=== PATIENT | male | born 1960 | race Caucasian/White ===

== ENCOUNTER 2021-03-31 10:39 | Outpatient (REF) | payer OTHER, SELFPAY ==
[2021-03-31 14:24] LABS: Alanine Aminotransferase 51 U/L (0-40); Albumin Level 4.4 g/dL (3.5-5.0); Alkaline Phosphatase 64 U/L (39-117); Anion Gap 13 (12-20); Aspartate Amino Transferase 35 U/L (5-37); Bilirubin Total 0.7 mg/dL (0.0-1.0); Blood Urea Nitrogen 17 mg/dL (9-16); Calcium 9.3 mg/dL (8.4-10.2); Carbon Dioxide 27 mmol/L (22-29); Chloride 105 mmol/L (96-108); Cholesterol 196 mg/dL; Estimated Glomerular Filt Rate > 60; Glucose Fasting 99 mg/dL (60-99); HDL Cholesterol 54 mg/dL; LDL Cholesterol Calculated 95 mg/dl; Potassium 4.4 mmol/L (3.3-5.1); Sodium 141 mmol/L (135-145); Total Protein 7.4 g/dL (6.5-8.0); Triglycerides 236 mg/dL
[2021-03-31 14:30] LABS: Creatinine Urine 202.49 mg/dL; Microalbum/Creatinine Ratio Ur 19.2 ug/mg cr
[2021-03-31 14:45] LABS: Prostate Specific Antigen Scr 0.43 ng/mL (<0.05-4.0); TSH reflex Free T4 1.27 uIU/mL (0.32-4.0)
== END 2021-03-31 10:40 | disposition home or self-care (01) ==
LOC: HO.WFDLDS 10:39
PROVIDERS: Visit Provider Family Medicine
DX: Z00.00 Encounter for general adult medical examination without abnormal findings (principal); Z12.5 Encounter for screening for malignant neoplasm of prostate; I10 Essential (primary) hypertension
CPT/HCPCS: 36415; 80053; 80061; 82043; 84153; 84443

== ENCOUNTER → 2021-05-27 10:17 | Outpatient (BNVA) | payer OTHER, SELFPAY | PROVIDERS: PCP Family Medicine; Referring Provider Family Medicine; Visit Provider Internal Medicine Cardiovascular Disease | DX: I71.2 Thoracic aortic aneurysm, without rupture (principal); I10 Essential (primary) hypertension; I44.1 Atrioventricular block, second degree | CPT/HCPCS: 93005; 99202 ==

== ENCOUNTER → 2021-06-03 10:08 | Outpatient (REF) | payer OTHER, SELFPAY ==
--- NOTE | 2021-06-03 10:13 | HM_ITS ---
Conclusion: 1. Patient was monitored for total period of 3 days and 2 hours 2. Baseline rhythm is normal sinus rhythm with average heart of 61 beats per minute 3. Very frequent Mobitz type 1 second-degree AV block noted mostly in the rn gyn hours, total burden 15.35% 4. Most of the pauses there were reported are secondary to Mobitz type 1 second- degree AV block 5. Very rare ectopics noted 6. No patient reported symptoms MTDD
--- NOTE | 2021-06-03 10:13 | CA_ITS ---
Acquisition Time: 2021-06-03 10:17:52 Total Exercise Time: 00:09:00 Test Indications: ABN EKG Medications: SEE CHART Protocol: THIEN Max HR: 122 BPM 76% of Pred: 159 BPM Max BP: 178/096 mmHG Max Work Load: 10.1 METS Exercise stress test with exercise 9 min of Thien protocol, achieving 76% MPHR, 10.1 METs, with request to stop due to leg fatigue and moderate sob, with no chest discomfort, with few PVCs noted in stage 3, nonconducted PACs noted in recovery, with normotensive response to exercise, with nondiagnostic EKG for ischemia due to suboptimal heart rate, with no ischemic changes noted at achieved workload. Test reviewed with Dr Land. Referred By: Jose Alberto Gray Overread By: GERI DAVIS
== END ==
LOC: HO.CARD 10:08
PROVIDERS: PCP Family Medicine; Visit Provider Internal Medicine Cardiovascular Disease
DX: I44.1 Atrioventricular block, second degree (principal)
CPT/HCPCS: 93017; 93242

== ENCOUNTER → 2021-06-30 11:25 | Outpatient (BNVA) | payer OTHER, SELFPAY | PROVIDERS: PCP Family Medicine; Referring Provider Family Medicine; Visit Provider Internal Medicine Cardiovascular Disease | DX: I25.10 Atherosclerotic heart disease of native coronary artery without angina pectoris (principal) | CPT/HCPCS: 99212 ==

== ENCOUNTER → 2021-07-02 15:02 | Outpatient (REF) | payer OTHER, SELFPAY ==
--- NOTE | 2021-07-02 15:07 | CA_ITS ---
Transthoracic Echocardiogram Patient (Last, First, Middle): Hugo Valdes, Gender: Male Date of : 1960 Age: 60 Procedure Date: 07/02/2021 Procedure Type: Transthoracic Echocardiogram Location: OP Height: 177.8 cm Weight: 95.26 kg BSA: 2.13 m2 Heart Rate: bpm BP: 118 / 81 mmHg Feather Maker: YAJAIRA Referring MD: Jose Alberto Gray MD Cable Mock Up Assembler: Jose Alberto Gray MD Symptoms: I71.2 - Thoracic aortic aneurysm, without rupture Study Quality: Adequate ECG Rhythm: Bradycardia Conclusions: - 1. Normal LV systolic function with grade 1 diastolic dysfunction 2. Trace to mild aortic regurgitation 3. Mildly dilated ascending aorta at 3.9 cm 4. No pericardial effusion Findings Left Ventricle Normal left ventricular size, thickness, and systolic function. The visually estimated ejection fraction is between 60-65%. Spectral Doppler is indicative of an impaired relaxation filling pattern. E/E prime ratio is <8, consistent with normal filling pressures. Evidence suggests grade I (mild) diastolic dysfunction. Measured global longitudinal endocardial strain is 19.4%, within normal limits Right Ventricle Normal right ventricular cavity size and systolic function. Atria The left atrium is likely dilated. There is no evidence of interatrial shunt. The right atrium is normal in size. Aortic Valve There is mild calcification of the aortic valve. There is no aortic valve stenosis. There is mild aortic valve regurgitation. Mitral Valve There is mild anterior and posterior mitral leaflet thickening. There is trace mitral valve regurgitation. There is no mitral valve stenosis. Pulmonic Valve The pulmonic valve is likely normal. There is trace pulmonic valve regurgitation. Tricuspid Valve Normal tricuspid valve structure. There is trace tricuspid valve regurgitation. Tricuspid regurgitation envelope is inadequate for calculation of right ventricular systolic pressure. Great Vessels The pulmonary artery was not well visualized. There is mild dilatation of the ascending aorta measuring 3.90 cm. Venous The inferior vena cava is normal in size and collapses greater than 50% with inspiration. Pericardium/Pleural There is no evidence of pericardial effusion. Prior Study Comparison No prior study available for comparison. Measurements 2D Linear Measurements IVSd: 1.06 0.6-0.9/0.6-1.0 cm LVIDd: 5.36 3.9-5.3/4.2-5.9 cm LVIDd Index: 2.52 2.4-3.2/2.2-3.1 cm/m2 LVIDs: 3.15 2.0-3.6 cm LVPWd: 0.90 0.7-1.1 cm LA Diam: 4.10 2.7-3.8/3.0-4.0 cm LAIDs Index: 1.92 1.5-2.3 cm/m2 LV Mass: 275.97 67-162/88-224 g LV Mass Index: 129.56 43-95/49-115 g/m2 LVOT Diam: 2.40 3.0+(-)1.3 cm Mitral Valve MV Pk E: 0.58 MV PK A: 0.72 MV Decel Time: 337.00 E/A: 0.80 E'Lateral: 7.51 E'Medial: 5.77 E/E' Med: 10.00 E/E' Lat: 7.70 PHT: 99.00 MVA PHT: 2.22 Decel Don[place]han: 1.72 Aortic Valve AoV Pk Rodrigo: 1.74 AoV Mn Rodrigo: 1.09 AoV VTI: 0.31 AoV Pk Grad: 12.00 Aov Mn Grad: 6.00 GEORGE Cont.VTI: 3.33 LVOT LVOT Pk Rodrigo: 1.14 LVOT Mn Rodrigo: 0.75 LVOT VTI: 0.23 LVOT Pk Grad: 5.00 LVOT Mn Grad: 3.00 LVOT Diam: 2.40 LVOT Area: 4.52 Diastolic Function MV Pk E: 0.58 MV Pk A: 0.72 E/A: 0.80 E'Medial: 5.77 E/E' Med: 10.00 E' Laterial: 7.51 E/E' Lat: 7.70 Right Ventricle TAPSE (mm): 19.00 TVS' Rodrigo: 16.40 Tricuspid Valve RA Press: 3.00 Great Vessels Aorta Sinus of Valsalva: 4.16 2.0-3.[address] Ridge: 3.60 1.7-3.4 cm Ao Asc: 3.90 2.1-3.4 cm Ao Arch: 3.40 Pulmonary Veins Pulm Vein S/D 1.30 Pulmonary Valve PV Pk Rodrigo: 1.02 Peak PV Grad: 4.00 Updated in Other Vendor System with Status of Final Jose Alberto Gray MD electronically signed on 07/03/2021 3:20:14 PM with status of Final
== END ==
LOC: HO.CARD 15:02
PROVIDERS: PCP Family Medicine; Visit Provider Internal Medicine Cardiovascular Disease
DX: I71.2 Thoracic aortic aneurysm, without rupture (principal)
CPT/HCPCS: 93306

== ENCOUNTER 2021-07-03 10:34 | Outpatient (REF) | payer OTHER, SELFPAY ==
[2021-07-03 14:20] LABS: Hematocrit 42.3 % (42.0-52.0); Hemoglobin 14.8 g/dl (14.0-18.0); Mean Corpuscular Volume 94.2 fL (80.0-98.0); Mean Platelet Volume 10.6 fL (9.4-12.4); Platelet Count 235 X10*3/uL (160-400); Red Blood Count 4.49 X10*6/uL (4.60-5.80); Red Cell Distribution Width 12.3 % (11.0-16.0)
[2021-07-03 14:21] LABS: INTERNATIONAL NORM RATIO 0.9 (0.9-1.1); Prothrombin Time 10.6 SEC (9.9-13.0)
[2021-07-03 14:22] LABS: Anion Gap 12 (12-20); Blood Urea Nitrogen 18 mg/dL (9-16); Calcium 9.1 mg/dL (8.4-10.2); Carbon Dioxide 26 mmol/L (22-29); Chloride 103 mmol/L (96-108); Estimated Glomerular Filt Rate > 60; Glucose Random 110 mg/dL (60-115); Sodium 137 mmol/L (135-145)
== END 2021-07-03 10:35 | disposition home or self-care (01) ==
LOC: HO.WFDLDS 10:34
PROVIDERS: Visit Provider Internal Medicine Cardiovascular Disease
DX: I25.10 Atherosclerotic heart disease of native coronary artery without angina pectoris (principal)
CPT/HCPCS: 36415; 80048; 85027; 85610

== ENCOUNTER → 2021-07-30 14:17 | Outpatient (BNVA) | payer OTHER, SELFPAY | PROVIDERS: PCP Family Medicine; Referring Provider Family Medicine; Visit Provider Internal Medicine Cardiovascular Disease | DX: I25.10 Atherosclerotic heart disease of native coronary artery without angina pectoris (principal); I71.2 Thoracic aortic aneurysm, without rupture; I44.1 Atrioventricular block, second degree | CPT/HCPCS: 99212 ==

== ENCOUNTER 2021-09-24 09:35 | Outpatient (REF) | payer OTHER, SELFPAY ==
[2021-09-24 11:35] LABS: Alanine Aminotransferase 60 U/L (0-40); Albumin Level 4.6 g/dL (3.5-5.0); Alkaline Phosphatase 63 U/L (39-117); Aspartate Amino Transferase 36 U/L (5-37); Bilirubin Direct 0.3 mg/dL (0.0-0.5); Bilirubin Total 0.7 mg/dL (0.0-1.0); Cholesterol 153 mg/dL; HDL Cholesterol 53 mg/dL; LDL Cholesterol Calculated 71 mg/dl; Total Protein 7.6 g/dL (6.5-8.0); Triglycerides 145 mg/dL
== END 2021-09-24 09:36 | disposition home or self-care (01) ==
LOC: HO.WFDLDS 09:35
PROVIDERS: Visit Provider Internal Medicine Cardiovascular Disease
DX: I25.10 Atherosclerotic heart disease of native coronary artery without angina pectoris (principal); R74.01 Elevation of levels of liver transaminase levels
CPT/HCPCS: 36415; 80061; 80076

== ENCOUNTER 2021-11-11 09:00 | Outpatient (RCR) | payer OTHER, SELFPAY ==
--- NOTE | 2021-10-14 12:19 | MHC.PT.EP ---
[facility] [place] [facility] [place] Office [place] Office [address] [place] [address] Dr Boby Virk [address] [phone] F: [phone] F: [phone] F: [phone] F: [phone] Physical Therapy Plan of Care Date of Evaluation: Date of Surgery: NA FOR L, HAD R ACHILLES REPAIR 2000 Diagnosis: STRAIN OF L ACHILLES TENDON Assessment: Pt IS 60 YO M REFERRED TO PT FROM DR SIN WITH STAIN OF L ACHILLES TENDON. Pt REPORTS HX OF SIMILAR PAIN R ACHILLES TENDON (WHICH ENDED UP BEING PARTIALLY TORN, THEN COMPLETE RUPTURE WITH SURGERY IN 2000). PRESENTS WITH LIMITED L ANKLE ROM AND DECREASE L LE FLEXIBILITY WITH SLIGHT DECREASAE IN ANKLE STRENGTH AND PROPRIOCEPTION. Pt IS AWAITING US (Nov) FOR ACHLLES TENDON TO ASSESS IF TORN. SHOULD BENEFIT FROM PT 1X/WK UNTIL THEN FOR TRIAL OF STRETCH/STRENGTHEN, ST WORK, PROP WORK, KT TO HELP WITH PAIN Frequency and Duration: The patient will be seen 1X/WK X 6 WKS Short Term Goals: 1. HEP WITH DC EX PLAN 2. INCREASED AWARENESS ACHILLES/ANKLE CARE (INCLUDING SELF KT IF INDICATED) Progress Worker Goals: 1. DECREASED L ACHILLES TENDON PAIN AT LEAST 50% WITH ADLS 2. INCREASED ANKLE DF 5 DEGREES 3, INCREASED HS FLEX L 5 DEGREES Treatment Plan: Modalities to reduce pain, spasms and effusion. Manual therapy to restore motion and function. Therapeutic exercise to improve strength and flexibility. Neuromuscular re-education for posture and balance. Therapeutic activities to return to functional activities of daily living. Electronically signed by: JALEEL SHAW PT Please sign and return to therapist. Thank you for your referral.
--- NOTE | 2021-11-11 10:46 | MHC.PT.DC ---
[facility] [place] [facility] [place] [facility] [place] [facility] [address] Boby Virk [address] [phone] F: [phone] F: [phone] F: [phone] F: [phone] Physical Therapy Discharge Report Diagnosis: STRAIN OF L ACHILLES TENDON Date of Surgery: NA FOR L, HAD R ACHILLES REPAIR 2000 Date of Evaluation: 10/14/21 Date of Discharge: 11/11/21 Treatments to Date: 5 Cancellations to Date: No Shows to Date: Discharge Status: Achieved Goals Improved Function Independent with HEP Discharge Summary: HAS MET PT GOALS Electronically signed by: JALEEL SHAW PT Please sign and return to therapist. Thank you for your referral.
== END 2021-11-11 10:47 | disposition home or self-care (01) ==
LOC: HO.PTWFD 09:00
PROVIDERS: PCP Family Medicine; Visit Provider Family Medicine
DX: S86.012A Strain of left Achilles tendon, initial encounter (principal)
CPT/HCPCS: 97110; 97140; 97162; 97530; 97535

== ENCOUNTER 2021-11-25 10:57 | Outpatient (REF) | payer OTHER, SELFPAY ==
--- NOTE | ~2021-11-25 | US_ITS ---
EXAMINATION: US ABDOMEN LIMITED WITH LIVER ELASTOGRAPHY CLINICAL INFORMATION: Elevation of liver transaminase levels. COMPARISON: None. TECHNIQUE: Real-time imaging of the abdominal viscera. Noninvasive ultrasound liver fibrosis assessment is performed using Ramos ElastPQ point quantification shear wave elastography (2D-SWE) with a C5-2 MHz transducer. Multiple elastography samples are obtained. FINDINGS: PANCREAS: Normal. The visualized pancreatic head and body are normal in appearance. The remainder of the pancreas is obscured from visualization by the overlying bowel gas. LIVER: The liver demonstrates normal size, contour and increased echogenicity. No focal lesion or intrahepatic biliary duct dilatation. The right lobe measures 17.3 cm in length. The left lobe measures 9.3 cm in length. Portal flow is hepatopedal. Shear wave liver elastography median stiffness is 1.63 m/s (reference: normal median stiffness is 1.3 m/s or less). IQR/median stiffness to assess sampling precision is 0.12 (reference: good quality data set is IQR/median stiffness of 0.15 or less). GALLBLADDER: Normal. The gallbladder is physiologically distended without evidence of stones, sludge, polyps, wall thickening or pericholecystic fluid. COMMON BILE DUCT: Normal in caliber measuring 0.4 cm in diameter. RIGHT KIDNEY: Normal. No hydronephrosis. No renal calculi or focal parenchymal lesions. The kidney measures 11.2 cm in maximum dimension. FREE FLUID: None. US/US abdomen oleary w elastography IMPRESSION: 1. Diffuse hepatic steatosis without focal lesion. 2. The rest of the visualized limited abdomen ultrasound is unremarkable. 3. Liver elastography: Median liver stiffness measures 1.60 which corresponds to cACLD (ruled out). REFERENCE: Society of Radiologists in Ultrasound Liver Stiffness Thresholds (2020): LIVER STIFFNESS THRESHOLDS: *Liver Stiffness equal or less than 1.3 m/s: High probability of being normal. *Liver Stiffness less than 1.7 m/s: In the absence of other known clinical signs, rules out compensated advanced chronic liver disease. *Liver Stiffness 1.7-2.1 m/s: Suggestive of compensated advanced chronic liver disease but need further test for confirmation. *Liver Stiffness over 2.1 m/s: Rules in compensated advanced chronic liver disease. *Liver Stiffness over 2.4 m/s: Suggestive of clinically significant portal hypertension. QUALITY OF DATA SET: *IQR/Median value equal or less than 0.15 implies a quality data set. *IQR/Median value over 0.15 implies a poor quality data set. SIGNIFICANT CHANGE FROM PRIOR EXAM: Significant change if liver stiffness measurement is 10% or greater from prior exam. OTHER CONSIDERATIONS: The stage of liver fibrosis may be overestimated in the setting of acute hepatitis, liver inflammation, elevated liver function tests, hepatic vascular congestion, obstructive cholestasis, non-fasting state, and infiltrative diseases such as amyloidosis and lymphoma. In some patients with NAFLD, the liver stiffness thresholds for compensated advanced chronic liver disease may be lower. In causes other than viral hepatitis and NAFLD, liver stiffness thresholds are not well established.
--- NOTE | ~2021-11-25 | US_ITS ---
EXAMINATION: US ULTRASOUND EXTREMITY NONVASCULAR CLINICAL INFORMATION: Strain of left Achilles tendon after stress test, from 3-4 months ago. Previous right Achilles tendon surgery. COMPARISON: None. TECHNIQUE: Limited ultrasound imaging to the left Achilles tendon and the right Achilles tendon for comparison was performed. FINDINGS: The left Achilles tendon is slightly heterogeneous but intact with no suspicion for hemorrhage, peritendinous fluid collection or tear. The musculotendinous junction and the insertion of Achilles tendon are intact. There are postsurgical changes involving the right Achilles tendon. US/US extremity nonvascular IMPRESSION: No gross abnormality seen involving the left Achilles tendon. No peritendinous fluid collection to suspect any tendinitis. The insertion of the tendon is intact.
== END 2021-11-25 10:58 | disposition home or self-care (01) ==
LOC: HO.US 10:57
PROVIDERS: Visit Provider Family Medicine
DX: R74.01 Elevation of levels of liver transaminase levels (principal); M79.662 Pain in left lower leg; S86.012A Strain of left Achilles tendon, initial encounter; X58.XXXA Exposure to other specified factors, initial encounter; Y93.9 Activity, unspecified; Y92.9 Unspecified place or not applicable; Y99.9 Unspecified external cause status
CPT/HCPCS: 76705; 76882; 76981

== ENCOUNTER 2022-02-19 08:30 | Outpatient (REF) | payer OTHER, SELFPAY ==
[2022-02-19 13:43] LABS: Alanine Aminotransferase 41 U/L (0-40); Albumin Level 4.4 g/dL (3.5-5.0); Alkaline Phosphatase 56 U/L (39-117); Anion Gap 11 (12-20); Aspartate Amino Transferase 26 U/L (5-37); Bilirubin Total 0.6 mg/dL (0.0-1.0); Blood Urea Nitrogen 14 mg/dL (9-16); Calcium 9.2 mg/dL (8.4-10.2); Carbon Dioxide 28 mmol/L (22-29); Chloride 103 mmol/L (96-108); Cholesterol 132 mg/dL; Estimated Glomerular Filt Rate > 60; Glucose Fasting 98 mg/dL (60-99); HDL Cholesterol 49 mg/dL; LDL Cholesterol Calculated 59 mg/dl; Potassium 4.3 mmol/L (3.3-5.1); Sodium 138 mmol/L (135-145); TSH reflex Free T4 1.54 uIU/mL (0.32-4.0); Total Protein 6.9 g/dL (6.5-8.0); Triglycerides 123 mg/dL
== END 2022-02-19 08:31 | disposition home or self-care (01) ==
LOC: HO.WFDLDS 08:30
PROVIDERS: Visit Provider Family Medicine
DX: Z00.00 Encounter for general adult medical examination without abnormal findings (principal)
CPT/HCPCS: 36415; 80053; 80061; 84443

== ENCOUNTER 2022-02-22 11:00 | Outpatient (REF) | payer OTHER, SELFPAY ==
[2022-02-23 12:05] LABS: Appearance Urine Clear; Color Urine Yellow; Glucose Urine UA Negative (Negative); Leukocyte Esterase Urine Negative (Negative); Nitrite Urine Negative (Negative); PH 7.5 (5.0-9.0); Specific Gravity - Urine <= 1.005 (1.005-1.025); Urine Blood Negative (Negative); Urine Ketones Negative (Negative); Urine Protein Negative (Neg-Trace)
[2022-02-23 12:46] LABS: Creatinine Urine 14.04 mg/dL; Microalbumin Urine < 5.0 mg/L
== END 2022-02-22 11:01 | disposition home or self-care (01) ==
LOC: HO.WFDLNP 11:00
PROVIDERS: Visit Provider Family Medicine
DX: Z00.00 Encounter for general adult medical examination without abnormal findings (principal); I10 Essential (primary) hypertension
CPT/HCPCS: 81003; 82043